=== PATIENT | male | born 1980 | race African-American/Black ===

== ENCOUNTER 2022-11-24 16:12 | Emergency (ER) | payer OTHER ==
[~2022-11-24] VITALS: Ht 167.6 cm; Wt 65.0 kg
[2022-11-24] MEDS ORDERED: ACETAMINOPHEN 325 MG TAB PO ONE (22:15)
[2022-11-24] MEDS ORDERED: ONDANSETRON 4MG ORAL DISINTEGRATING TAB PO ONE (22:15)
[2022-11-24 23:03] VITALS: BP 158/66
[2022-11-24] MEDS ORDERED: ONDA4TAB6 PO (23:05)
== END 2022-11-25 00:06 | disposition home or self-care (01) ==
LOC: M ED 16:12
DX: F07.81 Postconcussional syndrome (principal); U07.1 COVID-19; V49.40XA Driver injured in collision with unspecified motor vehicles in traffic accident, initial encounter; Z79.83 Long term (current) use of bisphosphonates